=== PATIENT | male | born 2000 | race Caucasian/White ===

== ENCOUNTER 2018-06-24 03:20 | Emergency (ER) | payer OTHER ==
[2018-06-24] MEDS: ONDANSETRON 4 MG INJ IM (05:21)
[2018-06-24] MEDS: morphine 4 MG/ML VIAL IM (05:21)
[2018-06-24] MEDS: KETOROLAC 60 MG INJ IM (05:22)
== END 2018-06-24 07:17 | disposition home or self-care (01) ==
LOC: E/R 03:20
DX: K52.9 Noninfective gastroenteritis and colitis, unspecified (principal)
CPT/HCPCS: 96372; 99284-25